=== PATIENT | female | born 1945 | race African-American/Black ===

== ENCOUNTER 2019-11-10 12:40 | Outpatient (CLI) | payer MEDICARE, SELFPAY ==
--- NOTE | ~2019-11-10 | CT_ITS ---
EXAMINATION: CT brain wo con EXAM DATE: 11/10/2019 14:16 INDICATION: Memory loss. History of aneurysms. TECHNIQUE: Spiral CT of the head was performed without contrast. Axial, coronal and sagittal images were reviewed. The dose-length product (DLP) for this examination was 605.33 mGy-cm. The exposure w as tailored according to patient size, and iterative reconstruction (ASIR) was used as additional dos e reduction technique. Comparison is made to prior examination from 09/03/2018. FINDINGS: Left parasellar aneurysm coils. There is no acute intraparenchymal hemorrhage. No evidence of intraparenchymal brain mass lesion. No evidence of acute infarction. Please note that initial h ead CT has limited sensitivity for small or acute infarctions. There is mild periventricular and subc ortical hypodensity, nonspecific but probably related to small vessel ischemic disease. There is mi ld prominence of the sulci and ventricles related to cerebral atrophy. There is intracranial caroti d arteriosclerosis. There are no extra-axial collections. There is no mass effect or midline shift. Patient has had right-sided ocular lens surgery. Soft tissue is unremarkable. The visualized sinu ses and mastoid air cells are well aerated. IMPRESSION: 1. No acute intracranial findings. 2. Chronic age related findings. 3. Left parasellar aneurysm coils. Reviewed, dictated and finalized at location [facility].
--- NOTE | 2019-11-11 10:57 | WPDNEUROLOGY ---
Neurology EEG Report General Information Date of Study: 11/10/19 Test: EEG Diagnosis: memory dysfunction Date of Recording: November 10 2019 EEG Number: [id number] Clinical History: patient had 2 aneurysms in the brain about 11 years ago over the right side now she is complaining of persistent pain in that area and also memory loss EEG Description: condition of recording awake and drowsy EEG description. basic resting occipital frequency consists of medium voltage 8 to 9 hertz per second alpha admixed with low-voltage 15 to 18 hertz per second beta activity. During drowsiness low voltage beta activity is seen admixed with waxing and waning alpha activity. bilateral symmetrical sleep activity is seen during sleep. Non paroxysmal, nonfocal, nonlateralizing, Impression: normal record
== END 2019-11-10 12:41 | disposition home or self-care (01) ==
LOC: ANHNEURO 12:41 → ANHIMG 12:53
PROVIDERS: PCP Family Medicine; Visit Provider Psychiatry & Neurology Neurology
DX: R41.3 Other amnesia (principal); E23.6 Other disorders of pituitary gland
CPT/HCPCS: 70450; 95816

== ENCOUNTER 2021-03-31 13:34 | Outpatient (CLI) | payer MEDICARE, SELFPAY ==
--- NOTE | ~2021-03-31 | CT_ITS ---
EXAMINATION: CT abdomen pelvis wo con DATE: 03/31/2021 13:59 INDICATION: Abdominal pain TECHNIQUE: Computed tomography (CT) of the abdomen and pelvis was performed without intravenous contr ast. Automated exposure control and iterative reconstruction technique were employed. Exam dose: 776 .46 mGy-cm total exam DLP. COMPARISON: 03/29/2019 CT abdomen pelvis 10/23/2017 CT abdomen pelvis FINDINGS: Normal heart size. No pericardial or pleural effusion. There is focal mild discoid atelecta sis or scarring at the base of the middle and right lower lobes and to a lesser extent lingula. Pneumobilia is likely secondary to cholecystectomy. No hepatic, splenic, pancreatic or left adrenal s pace-occupying mass lesion is evident. Stable approximately 1.8 x 2.8 cm low-attenuation right adrenal mass since 10/23/2017, most likely an adrenal adenoma. Multiple bilateral renal cysts, measuring up to 3.3 cm at the lower pole the right kidney,, several u pper pole right renal cysts measuring up to 2.7 cm. No urinary tract calculus or hydroureteronephrosis. The urinary bladder is unremarkable. Status post hysterectomy. There is atherosclerotic calcification of the abdominal aorta but no aneurysm. No intraperitoneal or retroperitoneal or pelvic mass lesion or adenopathy or ascites. No bowel obstruction or intraperitoneal free air. Very small fat-containing umbilical hernia and bilateral fat-containing inguinal hernias. Degenerative changes of the thoracic and lumbar spine including severe degenerative disc disease at L 4-5. No suspicious osteolytic or osteoblastic lesions are noted. IMPRESSION: Stable right adrenal adenoma Bilateral renal cysts Status post cholecystectomy with pneumobilia Status post hysterectomy Reviewed, dictated and finalized at [facility]. Reviewed, dictated and finalized at location A. DESK TECHNICIAN
== END 2021-03-31 13:35 | disposition home or self-care (01) ==
PROVIDERS: PCP Family Medicine; Visit Provider Family Medicine
DX: R10.9 Unspecified abdominal pain (principal); D35.01 Benign neoplasm of right adrenal gland; N28.1 Cyst of kidney, acquired; Z90.49 Acquired absence of other specified parts of digestive tract; Z90.710 Acquired absence of both cervix and uterus
CPT/HCPCS: 74176

== ENCOUNTER 2021-08-02 10:23 | Outpatient (CLI) | payer MEDICARE, MEDICAID, SELFPAY ==
--- NOTE | ~2021-08-02 | US_ITS ---
US renal BI 08/02/2021 10:56 Procedure: Realtime transabdominal ultrasound of the kidneys and bladder. Indication: Renal cysts. Comparison: No prior studies for comparison. Findings: Renal echotexture is normal bilaterally without hydronephrosis, contour deforming mass or r enal calculus. The right kidney measures 11.2 cm and left kidney measures 11 cm. There are bilateral renal cysts, largest on the right measuring 2.9 cm in largest on the left measuring 4 cm. Bladder is not well distended for evaluation. Impression: 1: Bilateral renal cysts. Reviewed, dictated and finalized at location A. Impression: 1: Bilateral renal cysts.
== END 2021-08-02 10:24 | disposition home or self-care (01) ==
PROVIDERS: PCP Family Medicine; Visit Provider Physician Assistant
DX: N28.1 Cyst of kidney, acquired (principal)
CPT/HCPCS: 76775

== ENCOUNTER 2022-06-11 10:24 | Outpatient (CLI) | payer MEDICARE, SELFPAY ==
--- NOTE | ~2022-06-11 | MR_ITS ---
EXAMINATION: MR brain/brain stem wo/w con DATE: 06/11/2022 11:12 INDICATION: Cerebrovascular disease. TECHNIQUE: Magnetic resonance imaging (MRI) of the brain and brainstem was performed without and with 17 mL MultiHance intravenous contrast. COMPARISON: Head CT 11/10/2019 FINDINGS: There are scattered areas of nonspecific increased T2-weighted signal intensity in the cere bral white matter, which is within normal limits for the patient's age. There is an old infarct in th e left caudate nucleus. 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 There is no intra cranial hemorrhage, acute infarction, or abnormal intracranial mass lesion. There is ex vacuo dilatat ion of anterior body of left lateral ventricle. There are likely changes of ocular lens replacement s urgeries. The paranasal sinuses are clear. There is a trace right mastoid effusion. IMPRESSION: 1. 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 Reviewed, dictated and finalized at location A.
== END 2022-06-11 10:25 ==
LOC: MICIMG 10:25
PROVIDERS: PCP Physician Assistant; Visit Provider Physician Assistant
DX: I67.9 Cerebrovascular disease, unspecified (principal)
CPT/HCPCS: 70553; A9577

== ENCOUNTER 2022-06-15 11:16 | Emergency (ER) | payer MEDICARE, SELFPAY ==
--- NOTE | ~2022-06-15 | CT_ITS ---
EXAMINATION: CTA brain carotid DATE: 06/15/2022 13:39 INDICATION: Severe headache. TECHNIQUE: Computed tomographic angiography (CTA) of the head was performed without and with 100 mL O [id number] intravenous contrast. CTA of the neck was performed with intravenous contrast. Automated exposure control and iterative reconstruction technique were employed. The dose-length product was 1 525.69 mGy-cm. Maximum intensity projection and volume rendered 3D-reconstructions were created by kera adair technologist on a separate workstation. COMPARISON: Head CT 11/10/2019, MRI 06/11/2022 FINDINGS: HEAD CTA: There are scattered areas of low attenuation in the cerebral white matter, which is within normal limits for the patient's age. There is an old infarct in left caudate nucleus. There is no int racranial hemorrhage, acute infarction, or abnormal intracranial mass lesion. There is ex vacuo dilat ation of anterior body of left lateral ventricle. There is mild mucosal thickening in the ethmoid sin uses. There are likely changes of ocular lens replacement surgeries. The mastoid air cells are normal . The vertebral arteries are codominant. There is no significant stenosis of basilar artery or the po sterior cerebral arteries. Right posterior communicating artery is normal. There is a 5 mm aneurysm c oil mass at the origin of left posterior communicating artery. No residual aneurysm filling. There is no significant stenosis of the intracranial internal carotid arteries or anterior or middle cerebral arteries. Anterior communicating artery is normal. NECK CTA: There is a 5 mm nodule in left thyroid lobe, likely not clinically significant. There are n o pathologically enlarged lymph nodes. There is plaque in the proximal internal carotid arteries. The re is 0% stenosis of the proximal right internal carotid artery relative to normal distal artery lume n diameter (NASCET criteria). There is 0% stenosis of the proximal left internal carotid artery relat vladimir to normal distal artery lumen diameter. There is moderate cervical spondylosis. IMPRESSION: 1. 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 2. 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 3. 0% stenosis of the proximal internal carotid arteries relative to normal distal artery lumen diame ters (NASCET criteria). Reviewed, dictated and finalized at location A. IMPRESSION: 1. 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 2. 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 3. 0% stenosis of the proximal internal carotid arteries relative to normal dis hema artery lumen diameters (NASCET criteria).
[2022-06-15 11:21] VITALS: BP 181/80; PULSE 79; RESP 16; TEMP 37.2; O2SAT 97
[2022-06-15 11:33] VITALS: BP 191/100; PULSE 82; RESP 16; O2SAT 97
[2022-06-15 12:38] LABS: Basophils Absolute Auto 0.1 K/mm3 (0.0-0.1); Eosinophils Absolute Auto 0.1 K/mm3 (0-0.3); Hemoglobin 12.3 g/dL (12.0-15.0); Immature Granulocyte Absolute 0.02 K/mm3 (0.00-0.031); Immature Granulocyte Percent A 0.4 % (0-0.5); Lymphocytes Absolute Auto 1.95 K/mm3 (0.9-3.2); Lymphocytes Percent Auto 37.4 % (18.3-44.2); Mean Corpuscular HGB Conc 32.4 g/dl (32-36); Mean Corpuscular Hemoglobin 30.3 pg (26-34); Mean Corpuscular Volume 93.6 fl (80-100); Mean Platelet Volume 10.8 fl (7.4-10.4); Monocytes Absolute Auto 0.6 K/mm3 (0.1-0.6); Monocytes Percent Auto 10.5 % (2.6-8.5); Neutrophils Absolute Auto 2.6 K/mm3 (1.3-6.7); Neutrophils Percent Auto 49.7 % (45.5-73.1); Platelet Count Result 237 k/mm3 (150-375); Red Blood Count 4.06 M/mm3 (4.2-5.4); White Blood Count 5.2 K/mm3 (4.5-10.0)
[2022-06-15 12:48] LABS: Alanine Aminotransferase 32 U/L (6-35); Albumin Level 4.6 g/dL (3.5-5.1); Alkaline Phosphatase 86 U/L (38-126); Anion Gap 9 mmol/L (8-16); Aspartate Amino Transferase 39 U/L (14-36); Bilirubin,Total 0.6 mg/dL (0.2-1.3); Blood Urea Nitrogen 14 mg/dL (7-17); Calcium 9.2 mg/dL (8.4-10.2); Carbon Dioxide 24 mmol/L (22-30); Chloride 106 mmol/L (98-107); Estimated CRCL calculation 69 ml/min; Estimated Glomerular Filt Rate > 60; Glucose 132 mg/dL (65-110); Potassium 4.6 mmol/L (3.4-5.0); Sodium 139 mmol/L (137-145)
[2022-06-15 12:49] LABS: INR 1.1; Prothrombin Time 13.3 Seconds (11.1-14.7)
--- NOTE | 2022-06-15 13:13 | ED.HA ---
HPI - Headache General Chief Complaint: Headache Stated Complaint: headaches, nausea, numbness started last night Time Seen by Provider: 06/15/22 12:45 History of Present Illness HPI Narrative: Patient is a 76-year-old female with a history of hyperlipidemia, hypertension, cerebral aneurysm status post coiling presenting with headache. Patient reports that she has had an intermittent headache for the last week or so. States that it seems to be located in the right occipital region and extends into the right parietal region. States that today it became a bit worse so she came in for evaluation. States that she took a couple Tylenol earlier today with minimal relief. States that she also has persistent nausea. States that she has some abdominal pain that is related to pancreatitis. Denies focal numbness or weakness. Denies speech changes or difficulty walking. States that she had an MRI several days ago but does not know the results. Denies further complaints. Related Data Home Medications Medication Instructions Recorded Confirmed atorvastatin 10 mg tablet 10 mg PO DAILY 03/29/19 03/29/19 bupropion HCl 150 mg 24 hr tablet, 150 mg PO DAILY 03/29/19 03/29/19 extended release carvedilol 3.125 mg tablet 3.125 mg PO BID 03/29/19 03/29/19 doxycycline hyclate 100 mg capsule 100 mg PO BID 03/29/19 03/29/19 ergocalciferol (vitamin D2) 1,250 1,250 mcg PO DAILY 03/29/19 03/29/19 mcg (50,000 unit) capsule (Vitamin D2) ferrous sulfate 324 mg (65 mg 324 mg PO DAILY 03/29/19 03/29/19 iron) tablet,delayed release fluoxetine 20 mg capsule 20 mg PO DAILY 03/29/19 03/29/19 lisinopril 20 mg tablet 20 mg PO DAILY 03/29/19 03/29/19 tramadol 50 mg tablet 50 - 100 mg PO Q6H PRN Pain 03/29/19 03/29/19 Allergies Allergy/AdvReac Type Severity Reaction Status Date / Time No Known Allergies Allergy Verified 03/29/19 05:18 Review of Systems Review of Systems: All systems reviewed & are unremarkable except as noted in HPI and below PMFSH Past Medical History Medical History Anemia Arthritis Bowel obstruction CVA (cerebral vascular accident) Depression Diabetes mellitus Gallstone pancreatitis History of biliary stent insertion HLD (hyperlipidemia) HTN (hypertension) HX: benign breast biopsy Sleep apnea with use of continuous positive airway pressure (CPAP) Toe fracture Rt 2nd Surgical History Surgical History H/O brain surgery Repair aneurysm H/O: hysterectomy History of bilateral knee replacement History of ERCP Biliary stent Social History Social History Smoking packs per day: 1 Smoking cigarettes per day: 20.0 Years smoked: 20 Smoking pack-years: 20.00 Smoking status: Former smoker Alcohol intake: never Substance use: never Gender identity (if verbalized by the patient): Female Spiritual care concerns: No Agree to blood products: Yes Exam Narrative: GENERAL: Well-appearing, well-nourished, and in no acute distress. HEAD: Normocephalic, atraumatic. EYES: PERRLA and EOMI. ENT: Nares clear, no rhinorrhea or epistaxis. Mucous membranes moist. NECK: Supple. CHEST: Clear to auscultation. No respiratory distress. HEART: Regular rate and rhythm. No murmur heard. Normal peripheral pulses. ABDOMEN: Soft, nontender, nondistended EXTREMITIES: Normal range of motion. No edema. SKIN: Warm, dry, no rash. NEURO: No focal deficits. Alert and oriented x3. 5 out of 5 strength in all extremities, no sensory deficits, no pronator drift PSYCH: Normal mood and affect. Course Vital Signs Vital signs: Vital Signs Temperature 98.9 F 06/15/22 11:21 Pulse Rate 79 06/15/22 11:21 Respiratory Rate 16 06/15/22 11:21 Blood Pressure 181/80 H 06/15/22 11:21 Pulse Oximetry 97 06/15/22 11:21 Oxygen Delivery Room Air
[2022-06-15 13:15] VITALS: PULSE 71; RESP 15
[2022-06-15] MEDS: ONDANSETRON INJ 4 MG/2 ML VIAL IV PUSH (13:18)
[2022-06-15] MEDS: SODIUM CHLORIDE 0.9% IV 1,000 ML 999 ML IV CONT (13:18)
[2022-06-15 13:45] LABS: Lipase 63 U/L (23-300)
[2022-06-15 14:09] VITALS: BP 157/77; PULSE 68; RESP 17; O2SAT 97
[2022-06-15 16:17] VITALS: BP 168/77; PULSE 69; RESP 20; O2SAT 97
== END 2022-06-15 16:18 | disposition home or self-care (01) ==
PROVIDERS: Emergency Medicine; Emergency Provider Emergency Medicine; PCP Physician Assistant
DX: R51.9 Headache, unspecified (principal); E78.5 Hyperlipidemia, unspecified; I10 Essential (primary) hypertension; E11.9 Type 2 diabetes mellitus without complications; G47.30 Sleep apnea, unspecified; M19.90 Unspecified osteoarthritis, unspecified site; F32.A Depression, unspecified; Z86.73 Personal history of transient ischemic attack (TIA), and cerebral infarction without residual deficits; Z86.2 Personal history of diseases of the blood and blood-forming organs and certain disorders involving the immune mechanism; Z87.891 Personal history of nicotine dependence; Z90.710 Acquired absence of both cervix and uterus; Z96.653 Presence of artificial knee joint, bilateral
CPT/HCPCS: 36415; 70496; 70498; 80053; 83690; 85025; 85610; 85730; 96365; 96375; 99284; J0131; J2405; J7030; Q9967

== ENCOUNTER 2023-03-22 12:42 | Outpatient (CLI) | payer MEDICARE, MEDICAID, SELFPAY ==
[2023-03-22 14:20] LABS: Thyroid Stimulating Hormone 0.863 uIU/mL (0.465-4.680)
[2023-03-22 14:57] LABS: Folic Acid 16.4 ng/mL (2.76->20); Vitamin B12 > 1000.0 pg/mL (239-931)
== END 2023-03-22 12:43 | disposition home or self-care (01) ==
PROVIDERS: PCP Physician Assistant; Visit Provider Student in an Organized Health Care Education/Training Program
DX: R41.3 Other amnesia (principal); E11.9 Type 2 diabetes mellitus without complications
CPT/HCPCS: 36415; 82607; 82746; 84443

== ENCOUNTER 2023-05-09 08:33 | Outpatient (CLI) | payer MEDICARE, MEDICAID, SELFPAY ==
--- NOTE | 2023-05-24 22:46 | WPDSLEEPSTUD ---
Sleep Study Date of Study: 05/09/23 Ordering Provider: Michel Gallegos APRN Interpreting Physician: Vannessa Gaines MD Sleep Study Type: Split Polysomnogram Height: 1.55 m Weight: 83.461 kg Body Mass Index: 34.7 Neck Circumference (inches): 15 [place]: 4 Reason for Sleep Study Poor quality sleep, waking up tired, cannot sleep for very long Sleep History Mayra Arriaga is a 77-year-old woman with diabetes, rheumatoid arthritis, strokes, and hypertension. She complains of not being able to sleep long enough and waking up feeling tired there is a family history of sleep issues, her siblings have sleep apnea. Two years ago she tried trazodone to help her sleep. The this was not sufficient. She never awakens from sleep short of breath. She occasional wakes at night with heartburn, belching or coughing.??She constantly snores, occasionally snores loudly enough that others complain. She rarely has trouble sleeping when she has a cold. She never wakes up gasping for breath during the night. She rarely has breathing problems at night. She rarely sweats excessively at night. She frequently notices her heart pounding or beating irregularly during the night. She occasionally falls asleep during the day. She occasionally falls asleep involuntarily, however never falls asleep while driving. She occasionally experiences loss of muscle tone with strong emotion. She never <del>never</del> never feels paralyzed on waking or falling asleep. She never experiences vivid dreams upon waking or falling asleep. She never feels afraid of going to sleep. She never has nightmares. She never recalls her dreams. She never has thoughts racing through her mind. She never feels sad, depressed or anxious. She never notices parts of her body jerk. She never kicks during the night. She occasionally feels crawling or aching feelings in her legs. She frequently feels leg pain at night. She never has morning jaw pain, and never grinds her teeth at night. She constantly feels bothered by pain during the day, is constantly awakened by pain during the night. She rarely wakes up feeling stiff in the morning, frequently wakes feeling sore or achy in the morning. She occasionally awakens with pain in her neck, spine, or joints. Normal bedtime is 10:00 p.m., falling asleep within 30 minutes, waking once during the night, watches television for 30 minutes to an hour and returns to sleep. Her normal wake time is 6:00 a.m.. She maintains the same schedule on weekends. She estimates getting 5 hours of sleep at night. She does not generally take naps in the afternoon or evening however after a short nap lasting 10-15 minutes, she may feel refreshed. She is usually drowsy for 3 hours after waking. She reports a 20 lb weight gain in the last year. Habits:??Tobacco: Former smoker, quit 32 years ago. Caffeine: 1 serving per day. Alcohol: None. Recreational substances: none PMFSH Past Medical History Medical History Anemia Arthritis Bowel obstruction CVA (cerebral vascular accident) Depression Diabetes mellitus Gallstone pancreatitis History of biliary stent insertion HLD (hyperlipidemia) HTN (hypertension) HX: benign breast biopsy SHYAM (obstructive sleep apnea) Sleep apnea with use of continuous positive airway pressure (CPAP) Toe fracture Rt 2nd Surgical History Surgical History H/O brain surgery Repair aneurysm H/O: hysterectomy History of bilateral knee replacement History of ERCP Biliary stent Social History Social History Smoking packs per day: 1 Smoking cigarettes per day: 20.0 Years smoked: 20 Smoking pack-years: 20.00 Smoking status: Former smoker Alcohol intake: never Substance use: never Substance use type: does not use Do You Feel Safe in your Home?: Yes Lack of Food:
[2023-05-31 13:18] VITALS: BMI 34.7
== END 2023-05-10 06:45 | disposition home or self-care (01) ==
LOC: ANHCSM 08:34
PROVIDERS: PCP Physician Assistant; Visit Provider Nurse Practitioner Family
DX: G47.30 Sleep apnea, unspecified (principal); G47.33 Obstructive sleep apnea (adult) (pediatric)
CPT/HCPCS: 95811